=== PATIENT | male | born 1960 | race Native Hawaiian/Other Pacific Islander ===

== ENCOUNTER 2020-10-14 15:42 | Emergency (ER) | payer OTHER ==
[~2020-10-14] VITALS: Ht 175.3 cm; Wt 81.6 kg
[2020-10-14 15:59] VITALS: TEMP 98.7
[2020-10-14 16:37] LABS: PLATELET COUNT 195 K/uL (142-355)
[2020-10-14 16:47] LABS: POTASSIUM 3.8 mmol/L (3.6-5.2)
[2020-10-14 16:52] LABS: PARTIAL THROMBOPLASTIN TIME 26.3 SECONDS (24.5-33.6)
[2020-10-14 17:13] VITALS: BP 144/89
== END 2020-10-14 17:15 | disposition home or self-care (01) ==
LOC: ED 15:42
PROVIDERS: Hospitalist
DX: M54.5 Low back pain (principal); G89.29 Other chronic pain; M62.830 Muscle spasm of back; S39.012A Strain of muscle, fascia and tendon of lower back, initial encounter; X58.XXXA Exposure to other specified factors, initial encounter; Y92.89 Other specified places as the place of occurrence of the external cause
CPT/HCPCS: 80053; 81000; 85027; 85610; 85730; 96360; 96375; 99284; J1885; J2405